=== PATIENT | female | born 1995 | race Caucasian/White ===

== ENCOUNTER 2020-07-26 13:22 | Emergency (ER) | payer BC, OTHER ==
[~2020-07-26] VITALS: Ht 172.7 cm; Wt 116.5 kg
--- NOTE | 2020-07-26 13:52 | NUR ---
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 UA COLLECTED AND SENT TO LAB.
[2020-07-26 14:03] LABS: MICROSCOPIC NOT IND
[2020-07-26 14:24] LABS: BASOPHILS % (AUTO) 1 % (0-1); EOSINOPHILS % (AUTO) 2 % (1-7); LYMPHOCYTES % (AUTO) 33 % (22-44); MEAN CORPUSCULAR HEMOGLOBIN 28.7 pg (27.0-34.8); MEAN CORPUSCULAR HGB CONC 33.5 g/dL (32.4-35.8); MEAN PLATELET VOLUME 9.2 fL (7.4-10.4); MONOCYTES % (AUTO) 7 % (2-9); NEUTROPHILS % (AUTO) 57 % (42-75); PLATELET COUNT 272 x10^3/uL (130-400); RED BLOOD COUNT 4.88 x10^6/uL (3.82-5.3); RED CELL DISTRIBUTION WIDTH 12.7 % (9.6-15.2)
--- NOTE | 2020-07-26 14:24 | NUR ---
ASSUMED CARE OF PATIENT PATIENT REPORTS RIGHT UPPER BACK PAIN THAT GOES TO RIGHT RIBS. VS STABLE. FAMILY AT BEDSIDE. NO ACUTE DISTRESS NOTED. CALL LIGHT IN PLACE. WILL CONTINUE TO MONITOR.
[2020-07-26 14:25] LABS: MD NO
[2020-07-26 14:36] LABS: ALBUMIN 3.9 g/dL (3.4-5.0); ANION GAP 5 mmol/L (5-15); CALCIUM 8.9 mg/dL (8.5-10.1); CHLORIDE 111 mmol/L (98-107); CREATININE 0.83 mg/dL (0.55-1.02)
--- NOTE | 2020-07-26 14:51 | NUR ---
DR ASLGUERO IN ROOM
--- NOTE | 2020-07-26 15:09 | NUR ---
US IN ROOM
[2020-07-26 15:37] LABS: ALBUMIN 3.9 g/dL (3.4-5.0); BILIRUBIN, DIRECT 0.1 mg/dL (0.1-0.2)
[2020-07-26 15:39] LABS: BILIRUBIN,INDIRECT 0.3 mg/dL (0.0-2.0); BILIRUBIN,TOTAL 0.4 mg/dL (0.2-1.0); TOTAL PROTEIN 7.4 g/dL (6.4-8.2)
--- NOTE | 2020-07-26 16:07 | NUR ---
PT RESTING IN ROOM. VS STABLE NO ACUTE DISTRESS NOTED. CALL LIGHT IN PLACE. WILL CONTINUE TO MONITOR.
--- NOTE | 2020-07-26 16:20 | NUR ---
DR SALGUERO HAS UPDATED PATIENT.
--- NOTE | 2020-07-26 18:07 | NUR ---
DR SALGUERO HAS UPDATED PATIENT
[2020-07-26 18:48] VITALS: BP 131/78
== END 2020-07-26 18:50 | disposition home or self-care (01) ==
LOC: ED 16:55
DX: R10.11 Right upper quadrant pain (principal); R11.0 Nausea; R19.7 Diarrhea, unspecified
CPT/HCPCS: 36415; 72072; 74176; 76700; 80048; 80076; 81003; 82040; 84703; 85025; 99285